=== PATIENT | male | born 1985 | race American Indian/Alaskan Native ===

== ENCOUNTER 2019-03-25 11:31 | Emergency (ER) | payer SELFPAY ==
[2019-03-25 11:48] VITALS: BP 107/66
--- NOTE | 2019-03-25 11:59 | Emergency Department Report ---
Suture/Staple Removal - [facility] Chief Complaint: Laceration/Recheck/Suture Stated Complaint: STITCHES REMOVAL Time Seen by Provider: 03/25/19 11:53 When Sutures or [place] Placed: 8-10 Days Ago Wound Location: left rib area ED Review of Systems ROS: Stated complaint: STITCHES REMOVAL Other details as noted in HPI Constitutional: denies: chills, fever Eyes: denies: eye pain, eye discharge, vision change ENT: denies: ear pain, throat pain Respiratory: denies: cough, shortness of breath, wheezing Cardiovascular: denies: chest pain, palpitations Endocrine: no symptoms reported Gastrointestinal: denies: abdominal pain, nausea, diarrhea Genitourinary: denies: urgency, dysuria Musculoskeletal: denies: back pain, joint swelling, arthralgia Skin: denies: rash, lesions Neurological: denies: headache, weakness, paresthesias Psychiatric: denies: anxiety, depression Hematological/Lymphatic: denies: easy bleeding, easy bruising ED Past Medical Hx - Past Medical History Previous Medical History?: No - Surgical History Past Surgical History?: Yes Additional Surgical History: spinal sx, metal reji to left ring finger - Social History Smoking Status: Never Smoker Substance Use Type: None - Medications Home Medications: Home Medications Medication Instructions Recorded Confirmed Last Taken Type Ibuprofen [Motrin] 800 mg PO Q8HR #30 tablet 03/14/19 Unknown Rx cephALEXin [Keflex] 500 mg PO Q12HR #10 cap 03/14/19 Unknown Rx Suture Removal Exam - Exam General: Vital signs noted. No distress. Alert and acting appropriately. Wound: No Pathologic Erythema, No Tenderness, No Drainage, No Pus, No Wound Dehiscence Other Systems: All other systems reviewed and are unremarkable. ED Course Vital Signs 03/25/19 11:46 Temperature 97.8 F Pulse Rate 79 Respiratory 20 Rate Blood Pressure 107/66 O2 Sat by Pulse 97 Oximetry - Reevaluation(s) Reevaluation #1: 03/25/19 11:55 Patient is speaking in full sentences with no signs of distress noted. ED Recheck MDM - Medical Decision Making Total of 10 sutures removed. Patient tolerated well. no signs of cellulitis or abscess. Patient was instructed to Follow-up with a primary care doctor in 3-5 days or if symptoms worsen and continue return to emergency room as soon as possible. At time of discharge, the patient does not seem toxic or ill in appearance. No acute signs of distress noted. Patient agrees to discharge treatment plan of care. No further questions noted by the patient. Critical care attestation.: If time is entered above; I have spent that time in minutes in the direct care of this critically ill patient, excluding procedure time. ED Disposition Clinical Impression: Encounter for removal of sutures Disposition: DC- TO HOME OR SELFCARE Is pt being admited?: No Does the pt Need Aspirin: No Condition: Stable Instructions: Suture Removal (ED) Additional Instructions: Follow-up with a primary care doctor in 3-5 days or if symptoms worsen and continue return to emergency room as soon as possible. Referrals: PRIMARY CARE, [Referring] - 3-5 Days VIVI SALAZAR MD [Staff Physician] - 3-5 Days [facility] [Outside] - 3-5 Days [facility] [place] [Outside] - 3-5 Days Forms: Work/School Release Form(ED)
== END 2019-03-25 12:10 | disposition home or self-care (01) ==
LOC: ED 11:31
DX: S21.3 Open wound of front wall of thorax with penetration into thoracic cavity (principal); Z98.890 Other specified postprocedural states; Z79.899 Other long term (current) drug therapy; X58.XXXD Exposure to other specified factors, subsequent encounter